=== PATIENT | female | born 1950 | race Caucasian/White ===

== ENCOUNTER 2024-01-08 06:36 | Day surgery (SDC) | payer MEDICARE, OTHER, SELFPAY ==
--- NOTE | 2023-12-28 09:32 | VNURNOTE ---
Patient is scheduled for an elective R TKR on 01/08/24, 23 hr OBS pt. Spoke with patient prior to surgery. Introduced role of [facility] liaison.
Patient reports that she lives with in an in-law suite/efficiency. Son and daughter in law live next to her. There is 1 step to enter and a bathroom and walk-in shower on the same floor.
Patient has never had [facility]N services. She reports she is interested in receiving nursing and PT short-term due to difficulties getting transportation to outpt PT. She anticipates she will be able to have transportation set up in within a few days
after DC. She does not have DME - will need a rolling walker and cane. Kateryna at [facility] notified via email.
PCP is Katia Tidwell.
Pharm is [facility]
Discussed orthopedic program and post surgical plans.
Patient selects VN for home care needs and will go to [facility] in [place] for outpatient PT.
Patient is in agreement with plan and states that her son and daughter in law will be available to help post-op
[2024-01-03 13:06] VITALS: BMI 24.0
[2024-01-03 13:37] LABS: % Eosinophils 3.5 % (0-6); % Immature Granulocytes 0.3 % (0-0.5); % Lymphocytes 20.7 % (20.5-51.1); % Monocytes 7.5 % (1.7-9.3); Absolute Basophils 0.1 10^3/uL (0-0.2); Absolute Eosinophils 0.3 10^3/uL (0-0.7); Absolute Lymphocytes 1.5 10^3/uL (1.2-3.4); Absolute Monocytes 0.6 10^3/uL (0.1-0.6); Absolute Neutrophils 4.9 10^3/uL (1.4-6.5); Hematocrit 37.6 % (37.0-47.0); Hemoglobin 12.6 g/dL (12.0-16.0); Mean Corp Hgb Conc. 33.5 g/dL (33.0-37.0); Mean Corpuscular Volume 86.6 fL (81.0-99.0); Mean Platelet Volume 9.4 fL (7.4-10.4); Nucleated Red Blood Cells % 0 %; Platelet Count 347 10^3/uL (130-400); Red Blood Cell Count 4.34 10^6/uL (4.20-5.40); Red Cell Dist. Width 12.5 % (11.5-14.5); White Blood Cell Count 7.4 10^3/uL (4.8-10.8)
[2024-01-03 13:45] LABS: ALT (SGPT) 15 U/L (0-35); AST (SGOT) 25 U/L (14-36); Albumin 3.9 g/dl (3.5-5.0); Alkaline Phosphatase 100 U/L (38-126); Blood Urea Nitrogen 13 mg/dl (7-17); Calcium 8.9 mg/dl (8.4-10.2); Carbon Dioxide 29 mmol/L (22-30); Chloride 103 mmol/L (98-107); Estimated Creatinine Clearance 58 ml/min; Glucose 94 mg/dl (70-99); Potassium 3.5 mmol/L (3.5-5.1); Sodium 143 mmol/L (135-145); Total Bilirubin 0.7 mg/dl (0.2-1.3); Total Protein 6.4 g/dl (6.3-8.2); eGFR > 60.00
[2024-01-04 09:40] LABS: Glycohemoglobin (HgbA1c) 5.6 % (4.0-5.6)
[2024-01-08] VITALS (10 sets, daily range): BP systolic 104–125; BP diastolic 61–72; BMI 24.0
--- NOTE | 2024-01-08 09:37 | VNURNOTE ---
Checked with Elham in SDS. No SDS orders seen on her end. Confirmed plan for patient to stay overnight.
[2024-01-08] MEDS: TYLENOL 650 MG PO ×3 (11:39→21:00)
[2024-01-08] MEDS: NORMOSOL-R/PLASMALYTE-A 1000 IV ×2 (11:39→17:53)
[2024-01-08] MEDS: CELEBREX 200 MG PO (11:40)
--- NOTE | 2024-01-08 16:01 | W.DS.TRANS ---
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
-
Discharge Instructions:
Sleep Apnea Risk Low
Discharge Diagnosis/Procedures R TKA Dr. Toledo 01/08/24
Diet Regular
Activity With Walker
Driving Restrictions No driving
Bathing Restrictions OK to Shower
Instructions:
Stand-Alone Forms: Total Hip/Knee Replacement D/C
Changes to Home Medications: Yes
Discharge Medications:
DC Medications w/original date entered in [employer]
alendronate 70 mg tablet (Fosamax) 70 mg PO MO 01/02/24
amlodipine 5 mg tablet 7.5 mg PO DAILY 01/02/24
calcium carbonate ([place] Heartburn Chew) 300 mg PO PRN PRN Heartburn 01/02/24
lorazepam 0.5 mg tablet (Ativan) 0.5 mg PO PRN PRN Anxiety 01/02/24
metoprolol succinate 25 mg tablet,extended release 24 hr 25 mg PO DAILY 01/02/24
valsartan 160 mg tablet 160 mg PO DAILY 01/02/24
acetaminophen 500 mg tablet 1,000 mg (2 x 500 mg) PO QID #0 tabs 01/08/24
aspirin 325 mg tablet 325 mg PO DAILY blood clot prevention #1 tab 01/08/24
celecoxib 200 mg capsule 200 mg PO DAILY anti-inflammatory #14 caps 01/08/24
dexamethasone 4 mg tablet 4 mg PO BID inflammation #6 tabs 01/08/24
docusate sodium 100 mg capsule (Colace) 100 mg PO BID stool softner #1 cap 01/08/24
famotidine 20 mg tablet 20 mg PO HS GI prophylaxis #30 tabs 01/08/24
gabapentin 300 mg capsule 300 mg PO HS sleep/pain #10 caps 01/08/24
magnesium hydroxide 400 mg/5 mL oral suspension (Milk of Magnesia) 30 ml PO HS PRN Constipation #1 mL 01/08/24
mupirocin 2 % topical ointment 1 applic topical BID 01/08/24
ondansetron 4 mg disintegrating tablet 4 mg PO Q6H PRN n/v #20 tabs 01/08/24
oxycodone 5 mg tablet 5 mg PO Q6H PRN 1 tab moderate pain, 2 tabs severe pain #30 tabs 01/08/24
sennosides 8.6 mg tablet (Senokot) 17.2 mg (2 x 8.6 mg) PO BID laxative #2 tabs 01/08/24
Home Medication Changes
celecoxib 200 mg capsule 200 mg PO DAILY anti-inflammatory #14 caps 01/08/24�
dexamethasone 4 mg tablet 4 mg PO BID inflammation #6 tabs 01/08/24�
docusate sodium 100 mg capsule (Colace) 100 mg PO BID stool softner #1 cap 01/08/24�
famotidine 20 mg tablet 20 mg PO HS GI prophylaxis #30 tabs 01/08/24�
gabapentin 300 mg capsule 300 mg PO HS sleep/pain #10 caps 01/08/24�
magnesium hydroxide 400 mg/5 mL oral suspension (Milk of Magnesia) 30 ml PO HS PRN Constipation #1 mL 01/08/24�
mupirocin 2 % topical ointment 1 applic topical BID 01/08/24�
ondansetron 4 mg disintegrating tablet 4 mg PO Q6H PRN n/v #20 tabs 01/08/24�
oxycodone 5 mg tablet 5 mg PO Q6H PRN 1 tab moderate pain, 2 tabs severe pain #30 tabs 01/08/24�
Pending Results: No
--- NOTE | 2024-01-08 16:49 | OR.RPT ---
Operative Report
Operative Report
Anesthesia Type:
Spinal
Operative Indications:
Right knee DJD
Operative Findings :
Same
Complications:
None
Implants:
Yessy persona size 6 femur, size D tibia, 32 mm patella poly, 10 mm MC poly insert
Procedure and Technique:
Right total knee arthroplasty
INDICATIONS FOR PROCEDURE:
73-year-old female who had failed conservative treatment right knee DJD to include activity modification, anti-inflammatory medications, home excise program, physical therapy, injections and was indicated for a right total knee arthroplasty. We
discussed risks benefits and alternatives of surgery. We discussed the usual expected perioperative postoperative course. After discussion written informed consent was obtained
OPERATIVE PROCEDURE:
Patient seen identified the preoperative holding area. Operative extremities marked. All questions were addressed. She was taken operating room where anesthesia was administered. Nonsterile tourniquet was applied. Operative extremities and
prepped and draped in normal sterile fashion. Timeout was performed again identifying the correct operative extremity. Preoperative antibiotics were addressed. Tourniquet was inflated. Standard anterior medial parapatellar approach was taken to
the knee. The distal femur was then prepared followed by the tibia using an extramedullary guide. A 10 mm block was then able to be placed with the leg in complete extension. 4-in-1 guide was then placed distal femur anterior posterior as well as
anterior posterior chamfer cuts were then performed. The patella was then prepared according to technique guide. Distal femur trial implant as well as patellar trial implant and tibia with polyethylene insert was then floated and found to be
appropriately stable. Trial implants were removed and the proximal tibia was then prepared according to technique guide. Wound was then copiously irrigated normal saline solution and dried. Cement was then placed and final components were then
placed with a 10 mm poly trial. After cement had cured, tourniquet was deflated hemostasis was achieved and final 10 mm MC poly was placed. Knee was taken through complete extension mid flexion and deep flexion found to be appropriately stable.
Satisfied with extent surgery, wound was again copiously irrigated normal saline solution as well as Betadine solution. Wound was closed in layered fashion utilizing #1 Vicryl for deep fascial layer, 2-0 Vicryl for subcutaneous layer and timothy
for skin. Aquacel dressing was applied. Anesthesia was versed patient was taken to PACU in stable condition. Postoperative plans include weightbearing patient's tolerance. Will recommend aspirin for DVT prophylaxis.
Disposition:
PACU stable condition
[2024-01-08] MEDS: ROXICODONE 5 MG PO (17:45)
[2024-01-08] MEDS: ASPIRIN 325 MG PO (18:08)
--- NOTE | 2024-01-08 18:09 | PTCARENOTE ---
Pt arrived to 2S in bed. Full assessment completed. RLE with decreased movement and sensation, neurovascular assessment otherwise WDL. R knee DSG with a scant amount of drainage noted. Pt incontinent of urine, perineal care provided. IVF initiated.
Pts home meds walked to pharmacy and secured per policy. Bed locked and in the lowest position, safety maintained. Oriented to room and call ortega.
[2024-01-08] MEDS: TORADOL 15 MG IV (19:36)
[2024-01-08] MEDS: BACTROBAN 2% OINTMENT 1 APPLIC NASAL (19:36)
[2024-01-08] MEDS: ZOFRAN 4 MG IV (19:36)
[2024-01-08] MEDS: ATIVAN PO (20:30)
[2024-01-08] MEDS: DECADRON 4 MG PO (21:00)
[2024-01-08] MEDS: COLACE PO (21:21)
[2024-01-08] MEDS: SENOKOT PO (21:22)
[2024-01-08] MEDS: PEPCID 20 MG PO (21:25)
[2024-01-08] MEDS: NEURONTIN 300 MG PO (21:25)
[2024-01-08] MEDS: ANCEF 5 IV (21:25)
[2024-01-08] MEDS: TYLENOL PO (23:40)
[2024-01-09] MEDS: TYLENOL PO (03:15)
[2024-01-09 03:30] VITALS: BP 101/54
[2024-01-09] MEDS: ANCEF 5 IV (05:19)
[2024-01-09] MEDS: COMPAZINE 5 MG PO (05:21)
[2024-01-09] MEDS: ZOFRAN 4 MG IV (05:28)
[2024-01-09] MEDS: NORMOSOL-R/PLASMALYTE-A 1000 IV (05:50)
--- NOTE | 2024-01-09 06:36 | DOWNTIME ---
There was a [employer] Client Manager Quantitative Downtime on 01/09/2024 from 0100 to 01/09/2024 at 0300. Downtime documentation of patient's care, including medication administrations, has been reconciled in the electronic record per guidelines. Refer to the
patient's paper chart under the miscellaneous tab to see printed paper medication records and downtime forms.
[2024-01-09 07:06] VITALS: BP 101/57
--- NOTE | 2024-01-09 07:33 | W.PN.ORTHO ---
Today's Communication / Plan
-
73-year-old female postop day 1 status post right total knee arthroplasty significant nausea and emesis overnight
Weightbearing as tolerated right lower extremity
PT OT
Pain control
DVT prophylaxis chemical and mechanical
Disposition: Hopefully discharge today pending physical therapy and control of emesis/nausea.
Subjective
.
.:
Patient reports significant nausea and emesis overnight. She reports that she has been unable to get out of bed secondary to nausea.
Vital Signs and Labs
.
Vital Signs and Labs:
Lab Results
01/03/24 12:40
01/03/24 12:40
Temp Pulse Resp BP Pulse Ox
97.8 F 84 14 101/57 95
01/09/24 07:06 01/09/24 07:06 01/09/24 07:06 01/09/24 07:06 01/09/24 07:06
Physical Exam
-
Musculoskeletal right lower extremity
Dressing with minimal bloody drainage
Positive EHL, FHL, ankle dissection, plantarflexion
Brisk cap refill distally
[2024-01-09] MEDS: TORADOL 15 MG IV (09:27)
[2024-01-09] MEDS: ATIVAN 0.5 MG PO (09:27)
[2024-01-09] MEDS: COLACE 100 MG PO (09:27)
[2024-01-09] MEDS: TOPROL XL 25 MG PO (09:27)
[2024-01-09] MEDS: BACTROBAN 2% OINTMENT 1 APPLIC NASAL (09:27)
[2024-01-09] MEDS: CELEBREX 200 MG PO (09:27)
[2024-01-09] MEDS: SENOKOT 17.2 MG PO (09:28)
[2024-01-09] MEDS: ASPIRIN 325 MG PO (09:28)
[2024-01-09] MEDS: DECADRON 4 MG PO (09:28)
[2024-01-09] MEDS: TYLENOL 650 MG PO ×2 (09:28→12:20)
[2024-01-09 11:30] VITALS: BP 109/60; PULSE 84; O2SAT 94
[2024-01-09 11:35] VITALS: BP 114/61; PULSE 84; O2SAT 97
--- NOTE | 2024-01-09 12:22 | CM ---
CM met with pt bedside
Pt resides in-law suite 1 story, son and DIL reside next door, 1STE to enter studio
Pt notes independence with her ADLs- no ADs
No financial insecurities
PCP- Katia Tidwell
RX- [facility]
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
Plans to call [facility] [place] once ready for outpt care
Notes transportation difficulties to outpt appts currently as family with new infant
Update to Dr. Toledo
PT issued jr hunter bedside and script provided
Update to VN- order on chart
Discharge Disposition- home with [facility] and new WW
[2024-01-09 12:39] VITALS: BP 109/60; PULSE 84; O2SAT 94
[2024-01-09 12:51] VITALS: BP 110/63
[2024-01-10 14:25] LABS: Hepatitis C Antibody Negative (Negative)
== END 2024-01-09 14:18 | disposition home or self-care (01) ==
LOC: SDS 06:36
PROVIDERS: ATTENDING PHYSICIAN Orthopaedic Surgery; FAMILY PHYSICIAN Family Medicine
DX: M17.11 Unilateral primary osteoarthritis, right knee (principal)
CPT/HCPCS: 27447; 36415; 73560; 80053; 83036; 85025; 86803; 87070; 97163; 97166; 97535; C1713; C1776